=== PATIENT | female | born 1950 | race Caucasian/White ===

== ENCOUNTER 2024-10-03 12:26 | Outpatient (CLI) | payer MEDICARE, BC ==
[~2024-10-03 12:26] MED LIST: BEMP180T PO; BIOT5000 PO; CARV25TA2 PO; COLE625T13 PO; ESTR0.5T29 PO; LEVO125T8 PO; LOSA50TA64 PO; MECO10005 PO; MULT-1133 PO; OMEG10006 PO; OMEP40CA21 PO; VITA1TAB97 PO
--- NOTE | 2024-10-03 14:16 | RADIOLOGY REPORT ---
[facility] INDICATION: THORACIC PAIN COMPARISON: None TECHNIQUE: 2 views of the thoracic spine were obtained. FINDINGS: The thoracic vertebral alignment is normal. The intervertebral disc spaces are well-maintained. No significant facet arthropathy is noted. No acute fracture, vertebral compression deformity or aggressive osseous lesions. The imaged thorax and abdomen are grossly unremarkable. IMPRESSION: No acute fracture.
[2024-10-03] MEDS ORDERED: GADOTERATE MEGLUMINE 7.5 MMOL/15 ML VIAL IV ONE (15:30)
--- NOTE | 2024-10-03 17:11 | RADIOLOGY REPORT ---
PROCEDURE: MR MRI THORACIC SPINE INDICATION: DORSALGIA Exam Date: 10/03/2024 01:13 PM COMPARISON: DI THORACIC SPINE LITD on DOS: 10/03/24 TECHNIQUE: MRI thoracic spine without intravenous contrast. FINDINGS: The thoracic alignment is intact. The vertebral body heights are intact. There are degenerative en dplate changes with anterior and lateral osteophytes mid to lower thoracic levels. The thoracic cord signal and contour appear intact. There is no significant posterior disc disease, central canal or n eural foraminal narrowing. The visualized paraspinal soft tissues are otherwise unremarkable. IMPRESSION: 1. Mild degenerative disease. No significant posterior disc disease, central canal or neural foramina l narrowing. 2. Intact thoracic cord signal. No evidence of cord compression. HS:Y
== END 2024-10-03 23:59 | disposition home or self-care (01) ==
LOC: MRI 12:26
PROVIDERS: ATTEND Internal Medicine
DX: M51.34 Other intervertebral disc degeneration, thoracic region (principal); M54.9 Dorsalgia, unspecified
CPT/HCPCS: 72070; 72146; A9575

== ENCOUNTER 2025-01-24 10:42 | Outpatient (CLI) | payer MEDICARE, BC ==
--- NOTE | 2025-01-24 12:34 | RADIOLOGY REPORT ---
EXAM: DI CHEST,TWO VIEWS CLINICAL HISTORY: COUGH COMPARISON: DI CHEST,SINGLE VIEW on DOS: 06/20/23 TECHNIQUE: Frontal and lateral view of the chest was obtained FINDINGS: Lines and Tubes: None Lungs: No focal consolidation. Pleura: No effusion. No pneumothorax. Cardiomediastinal contours: Unremarkable. Atherosclerotic vascular calcifications of the thoracic ao rta are noted. Bones: No acute osseous abnormality. IMPRESSION: No acute cardiopulmonary disease.
== END 2025-01-24 23:59 | disposition home or self-care (01) ==
LOC: RAD 10:42
PROVIDERS: ATTEND Internal Medicine
DX: R05.9 Cough, unspecified (principal)
CPT/HCPCS: 71046